=== PATIENT | male | born 1955 | race African-American/Black ===

== ENCOUNTER 2025-07-01 20:44 | Inpatient (IN) | payer MEDICARE, MEDICAID ==
[~2025-07-01] VITALS: Ht 162.6 cm; Wt 74.8 kg
[2025-07-01 20:48] VITALS: RESP 28
[2025-07-01] MEDS ORDERED: METHYLPREDNISOLONE 40MG/ML INJ IV ONE ×2 (21:00)
[2025-07-01] MEDS: AZITHROMYCIN 500MG/250ML 250 ML IV SCH (21:00)
[2025-07-01] MEDS ORDERED: CEFTRIAXONE 2,000 MG in DEXT 5% WATER 100 ML IV SCH (21:30)
[2025-07-01] MEDS: SODIUM CHLORIDE 0.9% 1,000 ML IV ONE (21:39)
[2025-07-01] MEDS: CEFTRIAXONE 2GM/50ML 50 ML IV SCH (21:40)
[2025-07-01] MEDS: METHYLPREDNISOLONE SOD SUCC 125MG/2ML (ACT-O-VIAL) IV NR (21:40)
[2025-07-01 21:56] LABS: BASOPHILS % 0.3 % (0.0-2.0); EOSINOPHILS % 0.2 % (0.0-5.0); HEMATOCRIT. 39.8 % (42.0-52.0); HEMOGLOBIN. 12.2 g/dL (14.0-18.0); LYMPHOCYTES % 8.7 % (20.0-50.0); MEAN PLATELET VOLUME 8.0 fl (7.4-10.4); MONOCYTES % 3.0 % (2.0-8.0); NEUTROPHILS % 87.8 % (40.0-76.0); PLATELET 354 x1000/uL (130-400); RED BLOOD CELL COUNT 4.88 mill/uL (4.7-6.1); RED CELL DISTRIBUTION WIDTH 15.9 % (11.6-14.6)
[2025-07-01 22:07] LABS: CREATININE 1.0 mg/dL (0.6-1.3)
[2025-07-01 22:08] LABS: TROPONIN I HIGH SENSITIVITY < 4 ng/L (3.0-53); UREA NITROGEN BLOOD 14 mg/dL (9-23)
[2025-07-01 22:09] LABS: ASPARTATE AMINOTRANSFERASE 27 IU/L (<34)
[2025-07-01 22:10] LABS: BILIRUBIN DIRECT < 0.1 mg/dL (<=3.0); BILIRUBIN TOTAL 0.4 mg/dL (0.1-1.0); INR 1.0; PROTEIN TOTAL 8.6 g/dL (6.0-8.3)
[2025-07-01 22:15] LABS: BG DEOXYHEMOGLOBIN 0.1 % (0.0-5.0)
[2025-07-02] VITALS (79 sets, daily range): BP systolic 70–153; BP diastolic 50–126; PULSE 64–113; RESP 21–32; TEMP 34.3–35.8; O2SAT 95–100
[2025-07-02] MEDS ORDERED: ONDANSETRON HCL 4MG/2ML INJ IV PRN
[2025-07-02] MEDS ORDERED: IPRATROPIUM/ALBUTEROL 0.5-3(2.5)MG/3ML NEB HHN PRN
[2025-07-02] MEDS ORDERED: ACETAMINOPHEN 325MG TABLET PO PRN ×2
[2025-07-02] MEDS: ALBUTEROL (0.083%) 2.5MG/3ML NEB HHN NR ×2 (02:31→07:45)
[2025-07-02] MEDS: ALBUTEROL (0.083%) 2.5MG/3ML NEB HHN ONE (02:31)
[2025-07-02 02:54] LABS: BG BASE EXCESS -3.3 mmol/L (-2.0-3.0); BG CARBOXYHEMOGLOBIN 0.8 % (0.5-1.5); BG DEOXYHEMOGLOBIN 7.5 % (0.0-5.0); BG FRACTION INSPIRED OXYGEN 40; BG HCO3 ACT 26.7 mmol/L (21.0-28.0); BG METHEMOGLOBIN 0.3 % (0.5-1.5); BG OXYGEN SATURATION 92.4 % (94.0-98.0); BG OXYHEMOGLOBIN 91.4 % (94.0-98.0); BG PCO2 74.6 mmHg (35.0-48.0); BG PH 7.172 (7.350-7.450); BG PO2 77.3 mmHg (83.0-108.0); BG SAMPLE SITE RIGHT RADIAL; BG TOTAL HEMOGLOBIN 12.7 g/dL (13.5-17.5); BG VENT MODE MASK - BIPAP; BG VENT RATE 18.0 set
[2025-07-02] MEDS: ONDANSETRON HCL 4MG/2ML INJ IV NR (04:00)
[2025-07-02] MEDS: PROPOFOL 10MG/ML 100ML 100 ML IV PRN (05:00)
[2025-07-02] MEDS ORDERED: FENTANYL 2500MCG/250ML PMX 250 ML IV PRN (05:15)
[2025-07-02] MEDS: NOREPINEPHRINE 8MG/250ML PMX 250 ML IV PRN (05:27)
[2025-07-02] MEDS: FENTANYL 2500MCG/250ML PMX 250 ML IV PRN (05:34)
[2025-07-02] MEDS: SODIUM CHLORIDE 0.9% 1,000 ML IV ONE (05:45)
[2025-07-02] MEDS ORDERED: METHYLPREDNISOLONE 40MG/ML INJ IV SCH (06:00)
[2025-07-02] MEDS ORDERED: ACETYLCYSTEINE 200MG/ML 20% VIAL 4ML INH SCH (06:00)
[2025-07-02] MEDS ORDERED: IPRATROPIUM/ALBUTEROL 0.5-3(2.5)MG/3ML NEB HHN SCH (06:00)
[2025-07-02] MEDS ORDERED: VANCOMYCIN 1.5GM/250ML IV NR (06:00)
[2025-07-02 06:25] LABS: HEMATOCRIT. 40.7 % (42.0-52.0); HEMOGLOBIN. 12.3 g/dL (14.0-18.0); MEAN PLATELET VOLUME 8.1 fl (7.4-10.4); PLATELET 364 x1000/uL (130-400); RED BLOOD CELL COUNT 4.89 mill/uL (4.7-6.1); RED CELL DISTRIBUTION WIDTH 16.5 % (11.6-14.6)
[2025-07-02 06:28] LABS: BG BASE EXCESS -5.7 mmol/L (-2.0-3.0); BG CARBOXYHEMOGLOBIN 0.6 % (0.5-1.5); BG DEOXYHEMOGLOBIN 0.3 % (0.0-5.0); BG FRACTION INSPIRED OXYGEN 100; BG HCO3 ACT 20.7 mmol/L (21.0-28.0); BG METHEMOGLOBIN 0.3 % (0.5-1.5); BG OXYGEN SATURATION 99.7 % (94.0-98.0); BG OXYHEMOGLOBIN 98.8 % (94.0-98.0); BG PCO2 43.9 mmHg (35.0-48.0); BG PEEP (cmH2O) 8.0 cmH2O; BG PH 7.291 (7.350-7.450); BG PO2 237.1 mmHg (83.0-108.0); BG SAMPLE SITE RIGHT RADIAL; BG TIDAL VOLUME(mL) 500.0 mL; BG TOTAL HEMOGLOBIN 13.0 g/dL (13.5-17.5); BG VENT MODE VENT - AC; BG VENT RATE 26.0 set
[2025-07-02 06:31] LABS: CREATININE 0.9 mg/dL (0.6-1.3); UREA NITROGEN BLOOD 10 mg/dL (9-23)
[2025-07-02 06:33] LABS: PHOSPHORUS 2.8 mg/dL (2.5-4.9)
[2025-07-02 06:57] LABS: BAND% 14.0 % (1.0-6.0); LYMPHOCYTES % MANUAL 4.0 % (20.0-50.0); MONOCYTES % MANUAL 2.0 % (2.0-8.0); NEUTROPHILS % MANUAL 80.0 % (45.0-75.0); PLATELET ESTIMATE NORMAL
[2025-07-02] MEDS: IOHEXOL-350 100 ML BOTTLE ONE (07:02)
[2025-07-02] MEDS: LEVETIRACETAM 500MG PREMIX 100ML IV SCH (07:43)
[2025-07-02] MEDS: PIPERACILLIN/TAZO 3.375G/50ML 50 ML IV SCH (07:44)
[2025-07-02] MEDS: DEXT 5%/0.9% NACL 1,000 ML IV SCH (07:44)
[2025-07-02] MEDS: GUAIFENESIN 200MG/10ML SUGAR FREE UDC PO SCH (07:44)
[2025-07-02] MEDS: IPRATROPIUM/ALBUTEROL 0.5-3(2.5)MG/3ML NEB HHN SCH (08:08)
[2025-07-02] MEDS: DEXTROSE 50% WATER 50ML SYRINGE IV NR (08:12)
[2025-07-02] MEDS: QUETIAPINE FUMARATE 25MG TABLET PO SCH (08:13)
[2025-07-02] MEDS: ASPIRIN 81MG TABLET PO SCH (08:13)
[2025-07-02] MEDS: FINASTERIDE 5MG TABLET PO SCH (08:13)
[2025-07-02] MEDS: PANTOPRAZOLE SODIUM 40 MG/VIAL IV SCH (08:13)
[2025-07-02] MEDS: VANCOMYCIN 1.5GM/250ML IV NR (08:14)
[2025-07-02] MEDS: TAMSULOSIN HCL 0.4MG SR CAPSULE PO SCH (08:14)
[2025-07-02] MEDS: INSULIN REGULAR (HUMULIN R) 1000UNITS/10ML VIAL IV NR (08:14)
[2025-07-02] MEDS ORDERED: AZITHROMYCIN 500MG/250ML 250 ML IV SCH (09:00)
[2025-07-02] MEDS ORDERED: LEVETIRACETAM 500MG TABLET PO SCH (09:00)
[2025-07-02] MEDS ORDERED: LEVETIRACETAM 500MG in NACL 100ML PREMIX IV SCH (09:00)
[2025-07-02] MEDS: POLYETHYLENE GLYCOL 3350 (17GM) 1 DOSE PACK PO SCH (09:00)
[2025-07-02] MEDS: CALCIUM GLUCONATE 100MG/ML 10ML VIAL IV NR (09:07)
[2025-07-02] MEDS: MAGNESIUM 2 G PREMIX 50 ML IV NR (09:08)
[2025-07-02] MEDS: ENOXAPARIN 40MG/0.4ML SYR SUBCUT SCH (09:08)
[2025-07-02] MEDS ORDERED: SODIUM CHLORIDE 0.9% 1,000 ML IV SCH (12:00)
[2025-07-02 12:55] LABS: BG BASE EXCESS -2.9 mmol/L (-2.0-3.0); BG CARBOXYHEMOGLOBIN 1.0 % (0.5-1.5); BG DEOXYHEMOGLOBIN 12.4 % (0.0-5.0); BG FRACTION INSPIRED OXYGEN 60; BG HCO3 ACT 22.7 mmol/L (21.0-28.0); BG METHEMOGLOBIN 0.0 % (0.5-1.5); BG OXYGEN SATURATION 87.5 % (94.0-98.0); BG OXYHEMOGLOBIN 86.6 % (94.0-98.0); BG PCO2 42.5 mmHg (35.0-48.0); BG PEEP (cmH2O) 8.0 cmH2O; BG PH 7.345 (7.350-7.450); BG PO2 54.0 mmHg (83.0-108.0); BG SAMPLE SITE RIGHT RADIAL; BG TIDAL VOLUME(mL) 500.0 mL; BG TOTAL HEMOGLOBIN 11.7 g/dL (13.5-17.5); BG VENT MODE VENT - AC; BG VENT RATE 22.0 set
[2025-07-02] MEDS: METHYLPREDNISOLONE SOD SUCC 40MG/ML (ACT-O-VIAL) IV SCH (14:10)
[2025-07-02 17:14] LABS: CLARITY URINE CLEAR (CLEAR); GLUCOSE URINE 2+ (NEGATIVE); KETONES URINE TRACE (NEGATIVE); LEUKOCYTE ESTERASE URINE TRACE (NEGATIVE); NITRITE URINE NEGATIVE (NEGATIVE); OCCULT BLOOD URINE NEGATIVE (NEGATIVE); PH URINE 5.5 (4.5-8.0); PROTEIN URINE TRACE (NEGATIVE); SPECIFIC GRAVITY URINE 1.046 (1.005-1.030); UROBILINOGEN URINE 0.2 E.U./dL (0.2-1.0)
[2025-07-02 17:31] LABS: COLOR URINE STRAW (YELLOW)
[2025-07-02 17:32] LABS: BACTERIA URINE NONE SEEN; MUCUS URINE TRACE /lpf (NONE/TRACE); RBC URINE NONE SEEN /hpf (0-2); SQUAMOUS EPITHELIAL CELL URINE RARE /lpf (RARE/1+); WBC URINE 0-2 /hpf (0-2)
[2025-07-02 17:38] LABS: RESPIRATORY SYNCYTIAL VIRUS Not Detected (Not Detectd)
[2025-07-02 17:53] LABS: INFLUENZA TYPE A Presumptive Negative (Pres. Neg.)
[2025-07-02 17:54] LABS: INFLUENZA TYPE B Presumptive Negative (Pres. Neg.)
[2025-07-02] MEDS: VANCOMYCIN 750MG/150ML (BAXTER) IV SCH (20:43)
[2025-07-02] MEDS: ATORVASTATIN CALCIUM 40MG TABLET PO SCH (20:43)
[2025-07-02] MEDS: AZITHROMYCIN 500MG/250ML 250 ML IV SCH (20:44)
[2025-07-03] VITALS (101 sets, daily range): BP systolic 81–154; BP diastolic 48–94; PULSE 67–113; RESP 19–27; TEMP 35.8–36.5; O2SAT 87–100
[2025-07-03] MEDS ORDERED: FENTANYL CITRATE 2,500 MCG in SODIUM CHLORIDE 0.9% 200 ML IV PRN (02:30)
[2025-07-03 05:54] LABS: UREA NITROGEN BLOOD 10 mg/dL (9-23)
[2025-07-03 05:57] LABS: PLATELET 245 x1000/uL (130-400); RED BLOOD CELL COUNT 3.69 mill/uL (4.7-6.1); RED CELL DISTRIBUTION WIDTH 16.2 % (11.6-14.6)
[2025-07-03 06:07] LABS: CREATININE 0.8 mg/dL (0.6-1.3)
[2025-07-03] MEDS ORDERED: PROPOFOL 10MG/ML 100ML 100 ML IV PRN (06:15)
[2025-07-03] MEDS ORDERED: LIDOCAINE HCL 1% 20ML VIAL ONE (09:16)
[2025-07-03 09:30] LABS: BG BASE EXCESS -1.4 mmol/L (-2.0-3.0); BG CARBOXYHEMOGLOBIN 0.1 % (0.5-1.5); BG DEOXYHEMOGLOBIN 2.0 % (0.0-5.0); BG FRACTION INSPIRED OXYGEN 60; BG HCO3 ACT 21.8 mmol/L (21.0-28.0); BG METHEMOGLOBIN 0.1 % (0.5-1.5); BG OXYGEN SATURATION 98.0 % (94.0-98.0); BG OXYHEMOGLOBIN 97.8 % (94.0-98.0); BG PCO2 31.1 mmHg (35.0-48.0); BG PEEP (cmH2O) 8.0 cmH2O; BG PH 7.464 (7.350-7.450); BG PO2 103.7 mmHg (83.0-108.0); BG SAMPLE SITE RIGHT RADIAL; BG TIDAL VOLUME(mL) 500.0 mL; BG TOTAL HEMOGLOBIN 9.9 g/dL (13.5-17.5); BG VENT MODE VENT - AC; BG VENT RATE 22.0 set
[2025-07-03] MEDS: BLOOD SUGAR DIAGNOSTIC STRIP TEST SCH (21:13)
[2025-07-04] VITALS (106 sets, daily range): BP systolic 94–145; BP diastolic 48–86; PULSE 81–140; RESP 20–36; TEMP 36.2–36.7; O2SAT 85–100
[2025-07-04] MEDS: METOPROLOL TARTRATE 25MG TABLET PO SCH ×2 (02:27→21:17)
[2025-07-04 06:04] LABS: HEMATOCRIT. 29.8 % (42.0-52.0); HEMOGLOBIN. 9.7 g/dL (14.0-18.0); RED BLOOD CELL COUNT 3.69 mill/uL (4.7-6.1); RED CELL DISTRIBUTION WIDTH 16.4 % (11.6-14.6)
[2025-07-04] MEDS ORDERED: PROPOFOL 10MG/ML 100ML 100 ML IV PRN (06:45)
[2025-07-04] MEDS: SODIUM CHLORIDE 0.9% 1,000 ML IV SCH (08:41)
[2025-07-04] MEDS ORDERED: METOPROLOL TARTRATE 25MG TABLET PO SCH ×2 (09:00→21:00)
[2025-07-04] MEDS: FINASTERIDE 5MG TABLET NG SCH (10:05)
[2025-07-04 10:38] LABS: BG BASE EXCESS -1.8 mmol/L (-2.0-3.0); BG CARBOXYHEMOGLOBIN 0.3 % (0.5-1.5); BG DEOXYHEMOGLOBIN 3.7 % (0.0-5.0); BG FRACTION INSPIRED OXYGEN 60; BG HCO3 ACT 22.4 mmol/L (21.0-28.0); BG METHEMOGLOBIN 0.1 % (0.5-1.5); BG OXYGEN SATURATION 96.3 % (94.0-98.0); BG OXYHEMOGLOBIN 95.9 % (94.0-98.0); BG PCO2 36.2 mmHg (35.0-48.0); BG PEEP (cmH2O) 8.0 cmH2O; BG PH 7.410 (7.350-7.450); BG PO2 83.1 mmHg (83.0-108.0); BG SAMPLE SITE LEFT RADIAL; BG TOTAL HEMOGLOBIN 10.1 g/dL (13.5-17.5); BG VENT MODE VENT - P/C; BG VENT RATE 20.0 set
[2025-07-04 11:49] LABS: CREATININE 0.8 mg/dL (0.6-1.3); TRIGLYCERIDE 62 mg/dL (0-150); UREA NITROGEN BLOOD 10 mg/dL (9-23)
[2025-07-04] MEDS: METOCLOPRAMIDE HCL 10MG/2ML VIAL IV SCH (11:58)
[2025-07-04 13:35] LABS: BAND% 18.0 % (1.0-6.0); LYMPHOCYTES % MANUAL 5.0 % (20.0-50.0); MONOCYTES % MANUAL 4.0 % (2.0-8.0); MYELOCYTES % 1.0 % (0-0); NEUTROPHILS % MANUAL 72.0 % (45.0-75.0); PLATELET ESTIMATE NORMAL
[2025-07-04 13:36] LABS: MEAN PLATELET VOLUME 9.2 fl (7.4-10.4); PLATELET 231 x1000/uL (130-400)
[2025-07-05] VITALS (105 sets, daily range): BP systolic 86–164; BP diastolic 46–95; PULSE 64–131; RESP 19–49; TEMP 36.3–36.9; O2SAT 92–100
[2025-07-05 06:11] LABS: CREATININE 0.8 mg/dL (0.6-1.3)
[2025-07-05 06:12] LABS: UREA NITROGEN BLOOD 10 mg/dL (9-23)
[2025-07-05 08:36] LABS: HEMATOCRIT. 29.6 % (42.0-52.0); HEMOGLOBIN. 9.5 g/dL (14.0-18.0); MEAN PLATELET VOLUME 8.5 fl (7.4-10.4); PLATELET 223 x1000/uL (130-400); RED BLOOD CELL COUNT 3.70 mill/uL (4.7-6.1); RED CELL DISTRIBUTION WIDTH 16.5 % (11.6-14.6)
[2025-07-05 09:19] LABS: BG BASE EXCESS -1.6 mmol/L (-2.0-3.0); BG CARBOXYHEMOGLOBIN 0.5 % (0.5-1.5); BG DEOXYHEMOGLOBIN 6.5 % (0.0-5.0); BG FRACTION INSPIRED OXYGEN 60; BG HCO3 ACT 24.4 mmol/L (21.0-28.0); BG METHEMOGLOBIN 0.2 % (0.5-1.5); BG OXYGEN SATURATION 93.5 % (94.0-98.0); BG OXYHEMOGLOBIN 92.8 % (94.0-98.0); BG PCO2 47.2 mmHg (35.0-48.0); BG PEEP (cmH2O) 8.0 cmH2O; BG PH 7.332 (7.350-7.450); BG PO2 70.1 mmHg (83.0-108.0); BG SAMPLE SITE LEFT RADIAL; BG TOTAL HEMOGLOBIN 10.6 g/dL (13.5-17.5); BG VENT MODE VENT - P/C; BG VENT RATE 20.0 set
[2025-07-05] MEDS: CALCIUM GLUCONATE 100MG/ML 10ML VIAL IV SCH (09:39)
[2025-07-05] MEDS: DEXTROSE 50% WATER 50ML SYRINGE IV SCH (09:39)
[2025-07-05] MEDS: INSULIN REGULAR (HUMULIN R) 1000UNITS/10ML VIAL IV SCH (09:41)
[2025-07-05] MEDS: FUROSEMIDE 40MG/4ML VIAL IVP SCH ×2 (09:56→11:30)
[2025-07-05 10:05] LABS: CREATININE 0.8 mg/dL (0.6-1.3); UREA NITROGEN BLOOD 13 mg/dL (9-23)
[2025-07-05 10:55] LABS: BAND% 5.0 % (1.0-6.0); LYMPHOCYTES % MANUAL 6.0 % (20.0-50.0); MONOCYTES % MANUAL 5.0 % (2.0-8.0); NEUTROPHILS % MANUAL 84.0 % (45.0-75.0); PLATELET ESTIMATE NORMAL
[2025-07-05] MEDS: ALBUTEROL (0.5%) 2.5MG/0.5ML NEB HHN SCH (12:17)
[2025-07-05] MEDS: NOREPINEPHRINE 8MG/250ML PMX 250 ML IV PRN (12:23)
[2025-07-05] MEDS: METHYLPREDNISOLONE SOD SUCC 125MG/2ML (ACT-O-VIAL) IV SCH (14:41)
[2025-07-05] MEDS: DOCUSATE SODIUM 100MG CAPSULE PO PRN (18:45)
[2025-07-06] VITALS (101 sets, daily range): BP systolic 93–163; BP diastolic 53–95; PULSE 87–141; RESP 18–33; TEMP 36.6–36.8; O2SAT 60–100
[2025-07-06 05:56] LABS: PLATELET 229 x1000/uL (130-400); RED BLOOD CELL COUNT 3.48 mill/uL (4.7-6.1); RED CELL DISTRIBUTION WIDTH 16.4 % (11.6-14.6)
[2025-07-06 06:11] LABS: CREATININE 0.9 mg/dL (0.6-1.3); UREA NITROGEN BLOOD 18 mg/dL (9-23)
[2025-07-06 10:05] LABS: BG BASE EXCESS 6.2 mmol/L (-2.0-3.0); BG CARBOXYHEMOGLOBIN 0.3 % (0.5-1.5); BG DEOXYHEMOGLOBIN 2.0 % (0.0-5.0); BG FRACTION INSPIRED OXYGEN 60; BG HCO3 ACT 31.0 mmol/L (21.0-28.0); BG METHEMOGLOBIN 0.2 % (0.5-1.5); BG OXYGEN SATURATION 98.0 % (94.0-98.0); BG OXYHEMOGLOBIN 97.5 % (94.0-98.0); BG PCO2 46.4 mmHg (35.0-48.0); BG PEEP (cmH2O) 8.0 cmH2O; BG PH 7.443 (7.350-7.450); BG PO2 103.3 mmHg (83.0-108.0); BG SAMPLE SITE LEFT RADIAL; BG TOTAL HEMOGLOBIN 10.0 g/dL (13.5-17.5); BG VENT MODE VENT - P/C; BG VENT RATE 22.0 set
[2025-07-06] MEDS: METHYLPREDNISOLONE SOD SUCC 40MG/ML (ACT-O-VIAL) IV SCH (21:34)
[2025-07-06] MEDS ORDERED: QUET25TA36 MT (22:25)
[2025-07-06] MEDS ORDERED: METO-396 PO (22:30)
[2025-07-06] MEDS ORDERED: ASPI-1406 MT (22:30)
[2025-07-06] MEDS ORDERED: KEPP500 MT (22:30)
[2025-07-06] MEDS ORDERED: ATOR40TA70 MT (22:30)
[2025-07-06] MEDS ORDERED: POLY17PO43 MT (22:30)
[2025-07-06] MEDS ORDERED: TAMS-54 PO (22:30)
[2025-07-06] MEDS ORDERED: SENN-362 PO (22:30)
[2025-07-06] MEDS ORDERED: FINA5TAB11 PO (22:30)
[2025-07-06] MEDS ORDERED: FEXO-403 PO (22:30)
[2025-07-06] MEDS ORDERED: FAMO20TA8 PO (22:30)
[2025-07-07] VITALS (105 sets, daily range): BP systolic 83–168; BP diastolic 50–95; PULSE 80–129; RESP 15–39; TEMP 36.5–36.9; O2SAT 91–100
[2025-07-07 05:36] LABS: PLATELET 252 x1000/uL (130-400); RED BLOOD CELL COUNT 3.90 mill/uL (4.7-6.1); RED CELL DISTRIBUTION WIDTH 16.6 % (11.6-14.6)
[2025-07-07 06:51] LABS: CREATININE 0.9 mg/dL (0.6-1.3); UREA NITROGEN BLOOD 24 mg/dL (9-23)
[2025-07-07 10:11] LABS: BG BASE EXCESS 10.8 mmol/L (-2.0-3.0); BG CARBOXYHEMOGLOBIN 0.3 % (0.5-1.5); BG DEOXYHEMOGLOBIN 2.9 % (0.0-5.0); BG FRACTION INSPIRED OXYGEN 60; BG HCO3 ACT 35.9 mmol/L (21.0-28.0); BG METHEMOGLOBIN 0.1 % (0.5-1.5); BG OXYGEN SATURATION 97.1 % (94.0-98.0); BG OXYHEMOGLOBIN 96.7 % (94.0-98.0); BG PCO2 50.8 mmHg (35.0-48.0); BG PEEP (cmH2O) 5.0 cmH2O; BG PH 7.467 (7.350-7.450); BG PO2 93.2 mmHg (83.0-108.0); BG SAMPLE SITE LEFT RADIAL; BG TOTAL HEMOGLOBIN 10.4 g/dL (13.5-17.5); BG VENT MODE VENT - AC/PC; BG VENT RATE 18.0 set
[2025-07-07] MEDS: PIPERACILLIN/TAZO 3.375G/50ML 50 ML IV SCH (13:31)
[2025-07-08] VITALS (107 sets, daily range): BP systolic 74–167; BP diastolic 43–97; PULSE 75–122; RESP 11–33; TEMP 36.1–37; O2SAT 89–100
[2025-07-08] MEDS ORDERED: FENTANYL 2500MCG/250ML PMX 250 ML IV PRN
[2025-07-08] MEDS: FENTANYL CITRATE 2,500 MCG in SODIUM CHLORIDE 0.9% 200 ML IV PRN (05:24)
[2025-07-08 05:29] LABS: CREATININE 0.8 mg/dL (0.6-1.3); UREA NITROGEN BLOOD 23 mg/dL (9-23)
[2025-07-08 06:08] LABS: PLATELET 243 x1000/uL (130-400); RED BLOOD CELL COUNT 4.04 mill/uL (4.7-6.1); RED CELL DISTRIBUTION WIDTH 16.8 % (11.6-14.6)
[2025-07-08 08:15] LABS: BG BASE EXCESS 8.9 mmol/L (-2.0-3.0); BG CARBOXYHEMOGLOBIN 0.9 % (0.5-1.5); BG DEOXYHEMOGLOBIN 5.2 % (0.0-5.0); BG FRACTION INSPIRED OXYGEN 50; BG HCO3 ACT 33.7 mmol/L (21.0-28.0); BG METHEMOGLOBIN 0.1 % (0.5-1.5); BG OXYGEN SATURATION 94.7 % (94.0-98.0); BG OXYHEMOGLOBIN 93.8 % (94.0-98.0); BG PCO2 47.8 mmHg (35.0-48.0); BG PEEP (cmH2O) 5.0 cmH2O; BG PH 7.466 (7.350-7.450); BG PO2 73.5 mmHg (83.0-108.0); BG SAMPLE SITE LEFT RADIAL; BG TOTAL HEMOGLOBIN 10.0 g/dL (13.5-17.5); BG VENT MODE VENT - AC/PC; BG VENT RATE 20.0 set
[2025-07-08] MEDS: POLYETHYLENE GLYCOL 3350 (17GM) 1 DOSE PACK PO SCH (08:45)
[2025-07-08] MEDS: FUROSEMIDE 40MG/4ML VIAL IVP SCH (08:45)
[2025-07-09] VITALS (84 sets, daily range): BP systolic 95–182; BP diastolic 47–98; PULSE 85–126; RESP 15–34; TEMP 36.7–37.1; O2SAT 91–99
[2025-07-09 06:12] LABS: HEMATOCRIT. 31.5 % (42.0-52.0); HEMOGLOBIN. 10.0 g/dL (14.0-18.0); MEAN PLATELET VOLUME 8.0 fl (7.4-10.4); PLATELET 310 x1000/uL (130-400); RED BLOOD CELL COUNT 3.95 mill/uL (4.7-6.1); RED CELL DISTRIBUTION WIDTH 16.7 % (11.6-14.6)
[2025-07-09 06:22] LABS: CREATININE 0.8 mg/dL (0.6-1.3); UREA NITROGEN BLOOD 30 mg/dL (9-23)
[2025-07-09] MEDS: HYDRALAZINE 20MG/ML VIAL IV PRN (06:22)
[2025-07-09] MEDS: SODIUM POLYSTYRENE SULFONATE 15 G/60 ML BOT PO NR (08:10)
[2025-07-09 08:14] LABS: BG BASE EXCESS 5.7 mmol/L (-2.0-3.0); BG CARBOXYHEMOGLOBIN 0.9 % (0.5-1.5); BG DEOXYHEMOGLOBIN 4.7 % (0.0-5.0); BG FRACTION INSPIRED OXYGEN 50; BG HCO3 ACT 29.5 mmol/L (21.0-28.0); BG METHEMOGLOBIN 0.2 % (0.5-1.5); BG OXYGEN SATURATION 95.2 % (94.0-98.0); BG OXYHEMOGLOBIN 94.2 % (94.0-98.0); BG PCO2 40.1 mmHg (35.0-48.0); BG PEEP (cmH2O) 5.0 cmH2O; BG PH 7.485 (7.350-7.450); BG PIP 22.0 cmH2O; BG PO2 73.3 mmHg (83.0-108.0); BG SAMPLE SITE LEFT RADIAL; BG TOTAL HEMOGLOBIN 10.6 g/dL (13.5-17.5); BG VENT MODE VENT - P/C; BG VENT RATE 20.0 set
[2025-07-09] MEDS: SENNOSIDES/DOCUSATE SOD 8.6/50MG TABLET PO SCH (21:38)
[2025-07-10] VITALS (79 sets, daily range): BP systolic 102–187; BP diastolic 51–91; PULSE 65–116; RESP 15–34; TEMP 36.7–36.9; O2SAT 87–98
[2025-07-10 06:28] LABS: PLATELET 373 x1000/uL (130-400); RED BLOOD CELL COUNT 3.91 mill/uL (4.7-6.1); RED CELL DISTRIBUTION WIDTH 16.6 % (11.6-14.6)
[2025-07-10 06:46] LABS: CREATININE 0.7 mg/dL (0.6-1.3)
[2025-07-10 06:47] LABS: UREA NITROGEN BLOOD 22 mg/dL (9-23)
[2025-07-10 09:39] LABS: BG BASE EXCESS 7.6 mmol/L (-2.0-3.0); BG CARBOXYHEMOGLOBIN 0.7 % (0.5-1.5); BG DEOXYHEMOGLOBIN 5.0 % (0.0-5.0); BG FRACTION INSPIRED OXYGEN 55; BG HCO3 ACT 32.1 mmol/L (21.0-28.0); BG METHEMOGLOBIN 0.2 % (0.5-1.5); BG OXYGEN SATURATION 95.0 % (94.0-98.0); BG OXYHEMOGLOBIN 94.1 % (94.0-98.0); BG PCO2 45.0 mmHg (35.0-48.0); BG PEEP (cmH2O) 5.0 cmH2O; BG PH 7.471 (7.350-7.450); BG PO2 72.4 mmHg (83.0-108.0); BG SAMPLE SITE LEFT RADIAL; BG TOTAL HEMOGLOBIN 10.6 g/dL (13.5-17.5); BG VENT MODE VENT - P/C; BG VENT RATE 20.0 set
[2025-07-10 19:10] LABS: BAND% 2.0 % (1.0-6.0); LYMPHOCYTES % MANUAL 7.0 % (20.0-50.0); MONOCYTES % MANUAL 2.0 % (2.0-8.0); MYELOCYTES % 2.0 % (0-0); NEUTROPHILS % MANUAL 87.0 % (45.0-75.0)
[2025-07-10 19:11] LABS: PLATELET ESTIMATE NORMAL
[2025-07-11] VITALS (100 sets, daily range): BP systolic 77–170; BP diastolic 47–83; PULSE 68–124; RESP 11–51; TEMP 36.7–37.3; O2SAT 88–100
[2025-07-11] MEDS: GUAIFENESIN 200MG/10ML SUGAR FREE UDC PO SCH (00:10)
[2025-07-11] MEDS: IPRATROPIUM/ALBUTEROL 0.5-3(2.5)MG/3ML NEB HHN SCH (00:15)
[2025-07-11] MEDS: ACETYLCYSTEINE 200MG/ML 20% VIAL 4ML INH SCH (00:16)
[2025-07-11 05:01] LABS: PLATELET 443 x1000/uL (130-400); RED BLOOD CELL COUNT 3.97 mill/uL (4.7-6.1); RED CELL DISTRIBUTION WIDTH 16.3 % (11.6-14.6)
[2025-07-11 05:20] LABS: CREATININE 0.7 mg/dL (0.6-1.3); UREA NITROGEN BLOOD 18 mg/dL (9-23)
[2025-07-11 10:31] LABS: BG BASE EXCESS 5.4 mmol/L (-2.0-3.0); BG CARBOXYHEMOGLOBIN 0.7 % (0.5-1.5); BG DEOXYHEMOGLOBIN 3.4 % (0.0-5.0); BG FRACTION INSPIRED OXYGEN 60; BG HCO3 ACT 29.9 mmol/L (21.0-28.0); BG METHEMOGLOBIN 0.2 % (0.5-1.5); BG OXYGEN SATURATION 96.6 % (94.0-98.0); BG OXYHEMOGLOBIN 95.7 % (94.0-98.0); BG PCO2 43.4 mmHg (35.0-48.0); BG PEEP (cmH2O) 8.0 cmH2O; BG PH 7.456 (7.350-7.450); BG PO2 90.2 mmHg (83.0-108.0); BG SAMPLE SITE LEFT RADIAL; BG TOTAL HEMOGLOBIN 11.3 g/dL (13.5-17.5); BG VENT MODE VENT - AC/PC; BG VENT RATE 18.0 set
[2025-07-11] MEDS: SODIUM CHLORIDE 0.9% 500 ML IV ONE (12:38)
[2025-07-11 18:29] LABS: INR 1.0
[2025-07-12] VITALS (77 sets, daily range): BP systolic 87–146; BP diastolic 54–77; PULSE 70–133; RESP 15–30; TEMP 36.7–37; O2SAT 88–100
[2025-07-12] MEDS: MEROPENEM 1G/100ML 100 ML IV SCH (02:00)
[2025-07-12 09:18] LABS: BG BASE EXCESS 6.5 mmol/L (-2.0-3.0); BG CARBOXYHEMOGLOBIN 0.0 % (0.5-1.5); BG DEOXYHEMOGLOBIN 1.9 % (0.0-5.0); BG FRACTION INSPIRED OXYGEN 70; BG HCO3 ACT 31.2 mmol/L (21.0-28.0); BG METHEMOGLOBIN 0.3 % (0.5-1.5); BG OXYGEN SATURATION 98.1 % (94.0-98.0); BG OXYHEMOGLOBIN 97.8 % (94.0-98.0); BG PCO2 45.5 mmHg (35.0-48.0); BG PEEP (cmH2O) 8.0 cmH2O; BG PH 7.454 (7.350-7.450); BG PIP 22.0 cmH2O; BG PO2 105.0 mmHg (83.0-108.0); BG SAMPLE SITE LEFT FEMORAL; BG TOTAL HEMOGLOBIN 10.0 g/dL (13.5-17.5); BG TOTAL RESPIRATORY RATE 19 b/min; BG VENT MODE VENT - P/C; BG VENT RATE 15.0 set
[2025-07-12 10:54] LABS: CREATININE 0.7 mg/dL (0.6-1.3); UREA NITROGEN BLOOD 14 mg/dL (9-23)
[2025-07-12 19:07] LABS: BG BASE EXCESS 6.3 mmol/L (-2.0-3.0); BG CARBOXYHEMOGLOBIN 0.7 % (0.5-1.5); BG DEOXYHEMOGLOBIN 12.1 % (0.0-5.0); BG FRACTION INSPIRED OXYGEN 60; BG HCO3 ACT 31.0 mmol/L (21.0-28.0); BG METHEMOGLOBIN 0.3 % (0.5-1.5); BG OXYGEN SATURATION 87.8 % (94.0-98.0); BG OXYHEMOGLOBIN 86.9 % (94.0-98.0); BG PCO2 45.8 mmHg (35.0-48.0); BG PEEP (cmH2O) 8.0 cmH2O; BG PH 7.449 (7.350-7.450); BG PIP 22.0 cmH2O; BG PO2 53.0 mmHg (83.0-108.0); BG SAMPLE SITE LEFT RADIAL; BG TOTAL HEMOGLOBIN 10.0 g/dL (13.5-17.5); BG TOTAL RESPIRATORY RATE 21 b/min; BG VENT MODE VENT - P/C; BG VENT RATE 15.0 set
[2025-07-13] VITALS (99 sets, daily range): BP systolic 87–181; BP diastolic 53–114; PULSE 74–162; RESP 16–34; TEMP 36.7–36.9; O2SAT 85–100
[2025-07-13 04:47] LABS: HEMATOCRIT. 26.2 % (42.0-52.0); HEMOGLOBIN. 8.5 g/dL (14.0-18.0); MEAN PLATELET VOLUME 7.6 fl (7.4-10.4); PLATELET 517 x1000/uL (130-400); RED BLOOD CELL COUNT 3.31 mill/uL (4.7-6.1); RED CELL DISTRIBUTION WIDTH 16.5 % (11.6-14.6)
[2025-07-13 04:57] LABS: CREATININE 0.6 mg/dL (0.6-1.3); UREA NITROGEN BLOOD 18 mg/dL (9-23)
[2025-07-13 04:59] LABS: PHOSPHORUS 2.5 mg/dL (2.5-4.9)
[2025-07-13 10:10] LABS: BG BASE EXCESS 6.0 mmol/L (-2.0-3.0); BG CARBOXYHEMOGLOBIN 0.5 % (0.5-1.5); BG DEOXYHEMOGLOBIN 5.7 % (0.0-5.0); BG FRACTION INSPIRED OXYGEN 70; BG HCO3 ACT 31.0 mmol/L (21.0-28.0); BG METHEMOGLOBIN 0.3 % (0.5-1.5); BG OXYGEN SATURATION 94.3 % (94.0-98.0); BG OXYHEMOGLOBIN 93.5 % (94.0-98.0); BG PCO2 47.8 mmHg (35.0-48.0); BG PEEP (cmH2O) 8.0 cmH2O; BG PH 7.430 (7.350-7.450); BG PIP 22.0 cmH2O; BG PO2 72.9 mmHg (83.0-108.0); BG SAMPLE SITE LEFT RADIAL; BG TOTAL HEMOGLOBIN 9.0 g/dL (13.5-17.5); BG VENT MODE VENT - P/C; BG VENT RATE 15.0 set
[2025-07-13] MEDS ORDERED: IOHEXOL-350 100 ML BOTTLE ONE (17:44)
[2025-07-13] MEDS ORDERED: FENTANYL CITRATE/PF 2,500 MCG in SODIUM CHLORIDE 0.9% 200 ML IV PRN (17:45)
[2025-07-13] MEDS: LORAZEPAM 2MG/ML UD SYRINGE IV SCH (20:53)
[2025-07-13 21:06] LABS: LYMPHOCYTES % MANUAL 4.0 % (20.0-50.0); MONOCYTES % MANUAL 2.0 % (2.0-8.0); NEUTROPHILS % MANUAL 94.0 % (45.0-75.0); PLATELET ESTIMATE INCREASED
[2025-07-13] MEDS ORDERED: DEXTROSE 50% WATER 50ML SYRINGE IV PRN (21:45)
[2025-07-13] MEDS: FENTANYL 2500MCG/250ML PMX 250 ML IV PRN (22:16)
[2025-07-14] VITALS (95 sets, daily range): BP systolic 87–172; BP diastolic 57–103; PULSE 91–142; RESP 16–35; TEMP 36.7–37.8; O2SAT 91–100
[2025-07-14 06:25] LABS: HEMATOCRIT. 25.9 % (42.0-52.0); HEMOGLOBIN. 8.3 g/dL (14.0-18.0); MEAN PLATELET VOLUME 7.5 fl (7.4-10.4); PLATELET 587 x1000/uL (130-400); RED BLOOD CELL COUNT 3.25 mill/uL (4.7-6.1); RED CELL DISTRIBUTION WIDTH 16.4 % (11.6-14.6)
[2025-07-14] MEDS: INSULIN LISPRO 100 UNITS/ML SUBCUT SCH (06:25)
[2025-07-14] MEDS ORDERED: BLOOD SUGAR DIAGNOSTIC STRIP TEST SCH (06:30)
[2025-07-14 06:37] LABS: CREATININE 0.7 mg/dL (0.6-1.3)
[2025-07-14 06:38] LABS: UREA NITROGEN BLOOD 20 mg/dL (9-23)
[2025-07-14 06:40] LABS: PHOSPHORUS 3.1 mg/dL (2.5-4.9)
[2025-07-14] MEDS ORDERED: INSULIN LISPRO 100 UNITS/ML SUBCUT SCH (07:00)
[2025-07-14 08:35] LABS: BG BASE EXCESS 7.9 mmol/L (-2.0-3.0); BG CARBOXYHEMOGLOBIN 0.3 % (0.5-1.5); BG DEOXYHEMOGLOBIN 8.4 % (0.0-5.0); BG FRACTION INSPIRED OXYGEN 70; BG HCO3 ACT 34.7 mmol/L (21.0-28.0); BG METHEMOGLOBIN 0.1 % (0.5-1.5); BG OXYGEN SATURATION 91.6 % (94.0-98.0); BG OXYHEMOGLOBIN 91.2 % (94.0-98.0); BG PCO2 62.3 mmHg (35.0-48.0); BG PEEP (cmH2O) 8.0 cmH2O; BG PH 7.364 (7.350-7.450); BG PIP 22.0 cmH2O; BG PO2 66.2 mmHg (83.0-108.0); BG SAMPLE SITE LEFT RADIAL; BG TOTAL HEMOGLOBIN 9.9 g/dL (13.5-17.5); BG VENT MODE VENT - P/C; BG VENT RATE 15.0 set
[2025-07-14] MEDS: DEXTROSE 50% WATER 50ML SYRINGE IV SCH (10:47)
[2025-07-14] MEDS: INSULIN REGULAR (HUMULIN R) 1000UNITS/10ML VIAL IV SCH (10:47)
[2025-07-14] MEDS: CALCIUM GLUCONATE 100MG/ML 10ML VIAL IV SCH (10:48)
[2025-07-14 15:27] LABS: LYMPHOCYTES % MANUAL 2.0 % (20.0-50.0); MONOCYTES % MANUAL 5.0 % (2.0-8.0); NEUTROPHILS % MANUAL 93.0 % (45.0-75.0)
[2025-07-14 15:28] LABS: PLATELET ESTIMATE SLIGHTLY INCREASED
[2025-07-14] MEDS: VANCOMYCIN 750MG/150ML (BAXTER) IV SCH (18:33)
[2025-07-14] MEDS: VANCOMYCIN 500MG/100ML IV SCH (23:04)
[2025-07-14] MEDS: METHYLPREDNISOLONE SOD SUCC 40MG/ML (ACT-O-VIAL) IV SCH (23:04)
[2025-07-15] VITALS (96 sets, daily range): BP systolic 74–179; BP diastolic 46–123; PULSE 72–134; RESP 14–31; TEMP 36.9–37; O2SAT 89–100
[2025-07-15] MEDS: LABETALOL 5MG/ML 4ML INJ IV PRN (03:17)
[2025-07-15 04:18] LABS: HEMATOCRIT. 27.6 % (42.0-52.0); HEMOGLOBIN. 8.9 g/dL (14.0-18.0); MEAN PLATELET VOLUME 6.9 fl (7.4-10.4); PLATELET 583 x1000/uL (130-400); RED BLOOD CELL COUNT 3.52 mill/uL (4.7-6.1); RED CELL DISTRIBUTION WIDTH 16.9 % (11.6-14.6)
[2025-07-15 04:36] LABS: CREATININE 0.6 mg/dL (0.6-1.3)
[2025-07-15 04:37] LABS: UREA NITROGEN BLOOD 17 mg/dL (9-23)
[2025-07-15 04:39] LABS: PHOSPHORUS 2.6 mg/dL (2.5-4.9)
[2025-07-15 05:28] LABS: LYMPHOCYTES % MANUAL 2.0 % (20.0-50.0); MONOCYTES % MANUAL 2.0 % (2.0-8.0); NEUTROPHILS % MANUAL 96.0 % (45.0-75.0)
[2025-07-15 05:29] LABS: PLATELET ESTIMATE INCREASED
[2025-07-15] MEDS ORDERED: VANCOMYCIN 750MG/150ML (BAXTER) IV SCH (09:00)
[2025-07-15] MEDS: METOPROLOL TARTRATE 25MG TABLET NG SCH (09:06)
[2025-07-15] MEDS ORDERED: INSULIN REGULAR (HUMULIN R) 1000UNITS/10ML VIAL IV NR (09:30)
[2025-07-15 09:38] LABS: BG BASE EXCESS 12.1 mmol/L (-2.0-3.0); BG CARBOXYHEMOGLOBIN 1.0 % (0.5-1.5); BG DEOXYHEMOGLOBIN 6.5 % (0.0-5.0); BG FRACTION INSPIRED OXYGEN 70; BG HCO3 ACT 38.7 mmol/L (21.0-28.0); BG METHEMOGLOBIN 0.2 % (0.5-1.5); BG OXYGEN SATURATION 93.4 % (94.0-98.0); BG OXYHEMOGLOBIN 92.3 % (94.0-98.0); BG PCO2 61.7 mmHg (35.0-48.0); BG PEEP (cmH2O) 5.0 cmH2O; BG PH 7.415 (7.350-7.450); BG PO2 66.0 mmHg (83.0-108.0); BG SAMPLE SITE LEFT RADIAL; BG TOTAL HEMOGLOBIN 10.9 g/dL (13.5-17.5); BG VENT MODE VENT - AC/PC; BG VENT RATE 20.0 set
[2025-07-15] MEDS: DEXTROSE 50% WATER 50ML SYRINGE IV NR (13:59)
[2025-07-15] MEDS: SODIUM CHLORIDE 1000MG TABLET NG SCH (14:00)
[2025-07-15] MEDS: INSULIN REGULAR (HUMULIN R) 1000UNITS/10ML VIAL IV SCH (14:01)
[2025-07-15] MEDS ORDERED: CEFEPIME 1GM IN DEXT 5% 50ML IV SCH (18:15)
[2025-07-15] MEDS: CEFEPIME 1GM/50ML 50 ML IV SCH (20:29)
[2025-07-15] MEDS: VANCOMYCIN 1.5GM PMX (XELLIA) 300 ML IV NR (20:55)
[2025-07-15] MEDS: QUETIAPINE FUMARATE 25MG TABLET PO SCH (21:24)
[2025-07-15] MEDS: DEXMEDETOMIDINE 100 ML IV PRN (22:42)
[2025-07-16] VITALS (98 sets, daily range): BP systolic 75–158; BP diastolic 49–111; PULSE 60–92; RESP 14–36; TEMP 36.6–37; O2SAT 92–100
[2025-07-16 06:29] LABS: CREATININE 0.6 mg/dL (0.6-1.3); UREA NITROGEN BLOOD 22 mg/dL (9-23)
[2025-07-16 06:31] LABS: PHOSPHORUS 3.9 mg/dL (2.5-4.9)
[2025-07-16] MEDS: VANCOMYCIN 750MG PREMIX 150 ML IV SCH (07:53)
[2025-07-16] MEDS: INSULIN REGULAR (HUMULIN R) 1000UNITS/10ML VIAL IV NR (09:10)
[2025-07-16] MEDS: SODIUM POLYSTYRENE SULFONATE 15 G/60 ML BOT NG NR (09:11)
[2025-07-16] MEDS: SODIUM BICARBONATE 8.4% 50MEQ/50ML SYR IV NR (09:11)
[2025-07-16] MEDS: DEXTROSE 50% WATER 50ML SYRINGE IV NR (09:13)
[2025-07-16 10:11] LABS: BG BASE EXCESS 8.7 mmol/L (-2.0-3.0); BG CARBOXYHEMOGLOBIN 1.6 % (0.5-1.5); BG DEOXYHEMOGLOBIN 4.1 % (0.0-5.0); BG FRACTION INSPIRED OXYGEN 80; BG HCO3 ACT 36.5 mmol/L (21.0-28.0); BG METHEMOGLOBIN 0.3 % (0.5-1.5); BG OXYGEN SATURATION 95.8 % (94.0-98.0); BG OXYHEMOGLOBIN 94.0 % (94.0-98.0); BG PCO2 76.5 mmHg (35.0-48.0); BG PEEP (cmH2O) 5.0 cmH2O; BG PH 7.296 (7.350-7.450); BG PO2 85.0 mmHg (83.0-108.0); BG SAMPLE SITE LEFT RADIAL; BG TOTAL HEMOGLOBIN 7.4 g/dL (13.5-17.5); BG VENT MODE VENT - P/C; BG VENT RATE 24.0 set
[2025-07-16] MEDS ORDERED: LIDOCAINE HCL 1% 20ML VIAL ONE (10:12)
[2025-07-16] MEDS: CALCIUM GLUCONATE 100MG/ML 10ML VIAL IV NR (12:01)
[2025-07-16 13:08] LABS: BG BASE EXCESS 9.2 mmol/L (-2.0-3.0); BG CARBOXYHEMOGLOBIN 1.7 % (0.5-1.5); BG DEOXYHEMOGLOBIN 0.6 % (0.0-5.0); BG FRACTION INSPIRED OXYGEN 100; BG HCO3 ACT 38.3 mmol/L (21.0-28.0); BG METHEMOGLOBIN 0.0 % (0.5-1.5); BG OXYGEN SATURATION 99.4 % (94.0-98.0); BG OXYHEMOGLOBIN 97.7 % (94.0-98.0); BG PCO2 90.0 mmHg (35.0-48.0); BG PEEP (cmH2O) 8.0 cmH2O; BG PH 7.247 (7.350-7.450); BG PO2 151.2 mmHg (83.0-108.0); BG SAMPLE SITE LEFT RADIAL; BG TOTAL HEMOGLOBIN 8.6 g/dL (13.5-17.5); BG VENT MODE VENT - AC/PC; BG VENT RATE 26.0 set
[2025-07-16 17:23] LABS: BASOPHILS % 0.1 % (0.0-2.0); EOSINOPHILS % 0.8 % (0.0-5.0); HEMATOCRIT. 26.6 % (42.0-52.0); HEMOGLOBIN. 8.3 g/dL (14.0-18.0); LYMPHOCYTES % 8.9 % (20.0-50.0); MEAN PLATELET VOLUME 7.0 fl (7.4-10.4); MONOCYTES % 8.0 % (2.0-8.0); NEUTROPHILS % 82.2 % (40.0-76.0); PLATELET 406 x1000/uL (130-400); RED BLOOD CELL COUNT 3.33 mill/uL (4.7-6.1); RED CELL DISTRIBUTION WIDTH 16.4 % (11.6-14.6)
[2025-07-16] MEDS: MIDAZOLAM 100MG/100ML PMX 100 ML IV PRN (21:42)
[2025-07-16 23:12] LABS: BG BASE EXCESS 11.9 mmol/L (-2.0-3.0); BG CARBOXYHEMOGLOBIN 0.5 % (0.5-1.5); BG DEOXYHEMOGLOBIN 3.8 % (0.0-5.0); BG FRACTION INSPIRED OXYGEN 100; BG HCO3 ACT 42.1 mmol/L (21.0-28.0); BG METHEMOGLOBIN 0.3 % (0.5-1.5); BG OXYGEN SATURATION 96.2 % (94.0-98.0); BG OXYHEMOGLOBIN 95.4 % (94.0-98.0); BG PCO2 97.8 mmHg (35.0-48.0); BG PEEP (cmH2O) 12.0 cmH2O; BG PH 7.252 (7.350-7.450); BG PO2 91.8 mmHg (83.0-108.0); BG SAMPLE SITE LEFT RADIAL; BG TIDAL VOLUME(mL) 300.0 mL; BG TOTAL HEMOGLOBIN 10.5 g/dL (13.5-17.5); BG VENT RATE 26.0 set
[2025-07-17] VITALS (106 sets, daily range): BP systolic 77–155; BP diastolic 34–136; PULSE 72–128; RESP 15–35; TEMP 36.7–37.1; O2SAT 89–100
[2025-07-17 06:23] LABS: HEMATOCRIT. 25.9 % (42.0-52.0); HEMOGLOBIN. 8.2 g/dL (14.0-18.0); MEAN PLATELET VOLUME 7.3 fl (7.4-10.4); PLATELET 370 x1000/uL (130-400); RED BLOOD CELL COUNT 3.21 mill/uL (4.7-6.1); RED CELL DISTRIBUTION WIDTH 16.2 % (11.6-14.6)
[2025-07-17 06:38] LABS: UREA NITROGEN BLOOD 21 mg/dL (9-23)
[2025-07-17 06:40] LABS: PHOSPHORUS 3.1 mg/dL (2.5-4.9)
[2025-07-17 06:57] LABS: CREATININE 0.4 mg/dL (0.6-1.3)
[2025-07-17] MEDS: SODIUM BICARBONATE 8.4% 50MEQ/50ML SYR IV NR (07:30)
[2025-07-17] MEDS: ALBUTEROL (0.083%) 2.5MG/3ML NEB HHN NR (08:24)
[2025-07-17 09:37] LABS: BG BASE EXCESS 12.3 mmol/L (-2.0-3.0); BG CARBOXYHEMOGLOBIN 0.6 % (0.5-1.5); BG DEOXYHEMOGLOBIN 2.5 % (0.0-5.0); BG FRACTION INSPIRED OXYGEN 100; BG HCO3 ACT 41.9 mmol/L (21.0-28.0); BG METHEMOGLOBIN 0.1 % (0.5-1.5); BG OXYGEN SATURATION 97.5 % (94.0-98.0); BG OXYHEMOGLOBIN 96.8 % (94.0-98.0); BG PCO2 97.6 mmHg (35.0-48.0); BG PEEP (cmH2O) 8.0 cmH2O; BG PH 7.251 (7.350-7.450); BG PIP 40.0 cmH2O; BG PO2 102.6 mmHg (83.0-108.0); BG SAMPLE SITE LEFT RADIAL; BG TOTAL HEMOGLOBIN 9.0 g/dL (13.5-17.5); BG TOTAL RESPIRATORY RATE 26 b/min; BG VENT MODE VENT - P/C; BG VENT RATE 26.0 set
[2025-07-17] MEDS: CALCIUM CHLORIDE 1GM/10ML SYR IV NR (09:37)
[2025-07-17] MEDS: DEXTROSE 50% WATER 50ML SYRINGE IV NR (09:37)
[2025-07-17] MEDS: CEFEPIME 2GM/100ML 100 ML IV SCH (09:39)
[2025-07-17] MEDS: INSULIN REGULAR (HUMULIN R) 1000UNITS/10ML VIAL IV NR (09:41)
[2025-07-17 10:44] LABS: LYMPHOCYTES % MANUAL 5.0 % (20.0-50.0); MONOCYTES % MANUAL 4.0 % (2.0-8.0); NEUTROPHILS % MANUAL 91.0 % (45.0-75.0); PLATELET ESTIMATE NORMAL
[2025-07-17] MEDS: HYDROCORTISONE SOD SUCCINATE 100 MG/2 ML VIAL IV SCH (17:18)
[2025-07-17 19:33] LABS: CREATININE 0.5 mg/dL (0.6-1.3); UREA NITROGEN BLOOD 14 mg/dL (9-23)
[2025-07-17] MEDS: TOBRAMYCIN SULFATE 40MG/ML 2ML INH SCH (22:14)
[2025-07-18] VITALS (110 sets, daily range): BP systolic 86–169; BP diastolic 53–104; PULSE 95–134; RESP 15–43; TEMP 36.1–36.9; O2SAT 90–100
[2025-07-18 05:20] LABS: PLATELET 398 x1000/uL (130-400); RED BLOOD CELL COUNT 3.51 mill/uL (4.7-6.1); RED CELL DISTRIBUTION WIDTH 16.4 % (11.6-14.6)
[2025-07-18 05:41] LABS: CREATININE 0.5 mg/dL (0.6-1.3); UREA NITROGEN BLOOD 17 mg/dL (9-23)
[2025-07-18 05:43] LABS: PHOSPHORUS 2.2 mg/dL (2.5-4.9)
[2025-07-18 09:13] LABS: BG BASE EXCESS 15.7 mmol/L (-2.0-3.0); BG CARBOXYHEMOGLOBIN 0.8 % (0.5-1.5); BG DEOXYHEMOGLOBIN 3.5 % (0.0-5.0); BG FRACTION INSPIRED OXYGEN 90; BG HCO3 ACT 43.2 mmol/L (21.0-28.0); BG METHEMOGLOBIN 0.3 % (0.5-1.5); BG OXYGEN SATURATION 96.5 % (94.0-98.0); BG OXYHEMOGLOBIN 95.4 % (94.0-98.0); BG PCO2 76.3 mmHg (35.0-48.0); BG PEEP (cmH2O) 5.0 cmH2O; BG PH 7.371 (7.350-7.450); BG PIP 40.0 cmH2O; BG PO2 83.8 mmHg (83.0-108.0); BG SAMPLE SITE LEFT RADIAL; BG TOTAL HEMOGLOBIN 8.7 g/dL (13.5-17.5); BG VENT MODE VENT - P/C; BG VENT RATE 26.0 set
[2025-07-18] MEDS: SODIUM ZIRCONIUM CYCLOSILICATE 10GM/PACKET PO NR (12:28)
[2025-07-18] MEDS: FUROSEMIDE 40MG/4ML VIAL IV NR (12:28)
[2025-07-18] MEDS: DEXTROSE 50% WATER 50ML SYRINGE IV NR (12:28)
[2025-07-18] MEDS: INSULIN REGULAR (HUMULIN R) 1000UNITS/10ML VIAL IV NR (12:29)
[2025-07-18] MEDS ORDERED: LACTULOSE ENEMA 1,000ML BOTTLE PR PRN (17:00)
[2025-07-18] MEDS ORDERED: PHENYLEPHRINE 50MG/250ML PMX 250 ML IV PRN (17:00)
[2025-07-18] MEDS: SODIUM PHOSPHATE 15 MMOL in DEXT 5% WATER 245 ML IV NR (17:53)
[2025-07-18 18:24] LABS: BG BASE EXCESS 16.8 mmol/L (-2.0-3.0); BG CARBOXYHEMOGLOBIN 0.5 % (0.5-1.5); BG DEOXYHEMOGLOBIN 8.0 % (0.0-5.0); BG FRACTION INSPIRED OXYGEN 90; BG HCO3 ACT 44.4 mmol/L (21.0-28.0); BG METHEMOGLOBIN 0.1 % (0.5-1.5); BG OXYGEN SATURATION 92.0 % (94.0-98.0); BG OXYHEMOGLOBIN 91.4 % (94.0-98.0); BG PCO2 73.0 mmHg (35.0-48.0); BG PEEP (cmH2O) 5.0 cmH2O; BG PH 7.402 (7.350-7.450); BG PIP 35.0 cmH2O; BG PO2 63.4 mmHg (83.0-108.0); BG SAMPLE SITE LEFT RADIAL; BG TOTAL HEMOGLOBIN 10.3 g/dL (13.5-17.5); BG VENT MODE VENT - P/C; BG VENT RATE 26.0 set
[2025-07-18] MEDS: LACTULOSE 20G/30ML UDC NG PRN (20:33)
[2025-07-19] VITALS (104 sets, daily range): BP systolic 85–166; BP diastolic 52–78; PULSE 76–116; RESP 18–34; TEMP 36.4–36.9; O2SAT 84–98
[2025-07-19 05:48] LABS: HEMATOCRIT. 22.2 % (42.0-52.0); HEMOGLOBIN. 7.2 g/dL (14.0-18.0); MEAN PLATELET VOLUME 7.2 fl (7.4-10.4); PLATELET 367 x1000/uL (130-400); RED BLOOD CELL COUNT 2.80 mill/uL (4.7-6.1); RED CELL DISTRIBUTION WIDTH 17.2 % (11.6-14.6)
[2025-07-19 05:54] LABS: CREATININE 0.6 mg/dL (0.6-1.3); UREA NITROGEN BLOOD 28 mg/dL (9-23)
[2025-07-19 05:56] LABS: PHOSPHORUS 3.3 mg/dL (2.5-4.9)
[2025-07-19 09:19] LABS: BG BASE EXCESS 17.8 mmol/L (-2.0-3.0); BG CARBOXYHEMOGLOBIN 1.4 % (0.5-1.5); BG DEOXYHEMOGLOBIN 1.4 % (0.0-5.0); BG FRACTION INSPIRED OXYGEN 100; BG HCO3 ACT 46.6 mmol/L (21.0-28.0); BG METHEMOGLOBIN 0.0 % (0.5-1.5); BG OXYGEN SATURATION 98.6 % (94.0-98.0); BG OXYHEMOGLOBIN 97.2 % (94.0-98.0); BG PCO2 94.4 mmHg (35.0-48.0); BG PEEP (cmH2O) 5.0 cmH2O; BG PH 7.311 (7.350-7.450); BG PIP 35.0 cmH2O; BG PO2 120.9 mmHg (83.0-108.0); BG SAMPLE SITE LEFT RADIAL; BG TOTAL HEMOGLOBIN 8.0 g/dL (13.5-17.5); BG VENT MODE VENT - P/C; BG VENT RATE 26.0 set
[2025-07-19 10:33] LABS: BAND% 3.0 % (1.0-6.0); LYMPHOCYTES % MANUAL 5.0 % (20.0-50.0); MONOCYTES % MANUAL 2.0 % (2.0-8.0); NEUTROPHILS % MANUAL 90.0 % (45.0-75.0); PLATELET ESTIMATE NORMAL
[2025-07-19 12:02] LABS: BG BASE EXCESS 17.0 mmol/L (-2.0-3.0); BG CARBOXYHEMOGLOBIN 0.4 % (0.5-1.5); BG DEOXYHEMOGLOBIN 3.0 % (0.0-5.0); BG FRACTION INSPIRED OXYGEN 90; BG HCO3 ACT 44.7 mmol/L (21.0-28.0); BG METHEMOGLOBIN 0.3 % (0.5-1.5); BG OXYGEN SATURATION 97.0 % (94.0-98.0); BG OXYHEMOGLOBIN 96.3 % (94.0-98.0); BG PCO2 82.1 mmHg (35.0-48.0); BG PEEP (cmH2O) 8.0 cmH2O; BG PH 7.354 (7.350-7.450); BG PO2 95.3 mmHg (83.0-108.0); BG SAMPLE SITE LEFT RADIAL; BG TOTAL HEMOGLOBIN 7.6 g/dL (13.5-17.5); BG VENT MODE VENT - AC/PC; BG VENT RATE 26.0 set
[2025-07-19] MEDS ORDERED: ACETAMINOPHEN 650MG/20.3ML UDC GT PRN ×2 (15:30)
[2025-07-19] MEDS ORDERED: DOCUSATE SODIUM SUGAR FREE 100MG/10ML UDC GT PRN (15:45)
[2025-07-19] MEDS: FENTANYL 2500MCG/250ML PMX 250 ML IV PRN (18:50)
[2025-07-20] VITALS (95 sets, daily range): BP systolic 99–156; BP diastolic 51–82; PULSE 79–122; RESP 23–32; TEMP 36.3–37.2; O2SAT 91–98
[2025-07-20 05:28] LABS: HEMATOCRIT. 22.5 % (42.0-52.0); HEMOGLOBIN. 7.3 g/dL (14.0-18.0); MEAN PLATELET VOLUME 7.0 fl (7.4-10.4); PLATELET 336 x1000/uL (130-400); RED BLOOD CELL COUNT 2.82 mill/uL (4.7-6.1); RED CELL DISTRIBUTION WIDTH 17.0 % (11.6-14.6)
[2025-07-20 05:45] LABS: CREATININE 0.5 mg/dL (0.6-1.3); UREA NITROGEN BLOOD 29 mg/dL (9-23)
[2025-07-20 05:47] LABS: PHOSPHORUS 2.8 mg/dL (2.5-4.9)
[2025-07-20 08:40] LABS: BG BASE EXCESS 19.6 mmol/L (-2.0-3.0); BG CARBOXYHEMOGLOBIN 1.4 % (0.5-1.5); BG DEOXYHEMOGLOBIN 3.0 % (0.0-5.0); BG FRACTION INSPIRED OXYGEN 100; BG HCO3 ACT 50.1 mmol/L (21.0-28.0); BG METHEMOGLOBIN 0.4 % (0.5-1.5); BG OXYGEN SATURATION 96.9 % (94.0-98.0); BG OXYHEMOGLOBIN 95.2 % (94.0-98.0); BG PCO2 119.5 mmHg (35.0-48.0); BG PEEP (cmH2O) 8.0 cmH2O; BG PH 7.240 (7.350-7.450); BG PO2 100.8 mmHg (83.0-108.0); BG SAMPLE SITE LEFT RADIAL; BG TOTAL HEMOGLOBIN 8.2 g/dL (13.5-17.5); BG VENT MODE VENT - AC/PC; BG VENT RATE 26.0 set
[2025-07-20] MEDS: INSULIN REGULAR (HUMULIN R) 1000UNITS/10ML VIAL IV NR (20:42)
[2025-07-20] MEDS: DEXTROSE 50% WATER 50ML SYRINGE IV NR (20:42)
[2025-07-20] MEDS: CALCIUM GLUCONATE 100MG/ML 10ML VIAL IV NR (20:54)
[2025-07-20 21:57] LABS: LYMPHOCYTES % MANUAL 6.0 % (20.0-50.0); MONOCYTES % MANUAL 4.0 % (2.0-8.0); NEUTROPHILS % MANUAL 90.0 % (45.0-75.0); PLATELET ESTIMATE NORMAL
[2025-07-20] MEDS: DEXMEDETOMIDINE 100 ML IV PRN (22:07)
[2025-07-21] VITALS (81 sets, daily range): BP systolic 67–133; BP diastolic 44–95; PULSE 0–116; RESP 0–40; TEMP 36.6–36.8; O2SAT 30–100
[2025-07-21 05:51] LABS: BASOPHILS % 0.1 % (0.0-2.0); EOSINOPHILS % 0.1 % (0.0-5.0); HEMATOCRIT. 26.8 % (42.0-52.0); HEMOGLOBIN. 8.2 g/dL (14.0-18.0); LYMPHOCYTES % 9.1 % (20.0-50.0); MEAN PLATELET VOLUME 7.2 fl (7.4-10.4); MONOCYTES % 2.5 % (2.0-8.0); NEUTROPHILS % 88.2 % (40.0-76.0); PLATELET 382 x1000/uL (130-400); RED BLOOD CELL COUNT 3.27 mill/uL (4.7-6.1); RED CELL DISTRIBUTION WIDTH 17.1 % (11.6-14.6)
[2025-07-21 06:14] LABS: CREATININE 0.7 mg/dL (0.6-1.3)
[2025-07-21 06:15] LABS: UREA NITROGEN BLOOD 32 mg/dL (9-23)
[2025-07-21 06:16] LABS: PHOSPHORUS 3.8 mg/dL (2.5-4.9)
[2025-07-21] MEDS: CALCIUM GLUCONATE 100MG/ML 10ML VIAL IV SCH (08:22)
[2025-07-21] MEDS: DEXTROSE 50% WATER 50ML SYRINGE IV SCH (08:22)
[2025-07-21] MEDS: INSULIN REGULAR (HUMULIN R) 1000UNITS/10ML VIAL IV SCH (08:25)
[2025-07-21] MEDS: DEXTROSE 50% WATER 50ML SYRINGE IV NR (08:45)
[2025-07-21] MEDS: INSULIN REGULAR (HUMULIN R) 1000UNITS/10ML VIAL IV NR (08:46)
[2025-07-21 09:30] LABS: BG BASE EXCESS 13.5 mmol/L (-2.0-3.0); BG CARBOXYHEMOGLOBIN 1.5 % (0.5-1.5); BG DEOXYHEMOGLOBIN 4.9 % (0.0-5.0); BG FRACTION INSPIRED OXYGEN 100; BG HCO3 ACT 48.0 mmol/L (21.0-28.0); BG METHEMOGLOBIN 0.3 % (0.5-1.5); BG OXYGEN SATURATION 95.0 % (94.0-98.0); BG OXYHEMOGLOBIN 93.3 % (94.0-98.0); BG PCO2 179.9 mmHg (35.0-48.0); BG PEEP (cmH2O) 8.0 cmH2O; BG PH 7.044 (7.350-7.450); BG PO2 88.6 mmHg (83.0-108.0); BG SAMPLE SITE LEFT RADIAL; BG TOTAL HEMOGLOBIN 9.5 g/dL (13.5-17.5); BG VENT MODE VENT - P/C; BG VENT RATE 30.0 set
[2025-07-21] MEDS: ACETAZOLAMIDE 250MG TABLET PO SCH (17:26)
[2025-07-21] MEDS ORDERED: NOREPINEPHRINE 32 MG in DEXT 5% WATER 218 ML IV PRN (20:15)
[2025-07-21] MEDS: DEXTROSE 50% WATER 50ML SYRINGE IV PRN (20:34)
== END 2025-07-21 21:23 | DRG 870 ==
LOC: ER 20:44 → MICUSO 22:27 → EDBEDREQTM 23:07 → EDBEDREQ 23:07 → ENRESERV 23:21 → CANRESERV 23:21 → EDBEDREQDT 07-02 00:25 → EDBEDREQSVC 07-02 00:25 → EDBEDREQTM 07-02 00:25 → EDBEDREQSVC 07-02 01:30 → ENRESERV 07-02 04:46 → CANRESERV 07-02 04:46 → EDBEDREQSVC 07-02 05:30 → EDBEDREQTM 07-02 05:30 → ENRESERV 07-02 06:10
PROVIDERS: ADMIT Internal Medicine; ATTEND Internal Medicine
PROC: 5A09357 Assistance with Respiratory Ventilation, Less than 24 Consecutive Hours, Continuous Positive Airway Pressure (ICD-10-PCS; 2025-07-01)
PROC: 0BH17EZ Insertion of Endotracheal Airway into Trachea, Via Natural or Artificial Opening (ICD-10-PCS; principal; 2025-07-02)
PROC: 5A1955Z Respiratory Ventilation, Greater than 96 Consecutive Hours (ICD-10-PCS; 2025-07-02)
PROC: 06HY33Z Insertion of Infusion Device into Lower Vein, Percutaneous Approach (ICD-10-PCS; 2025-07-03)
PROC: B54CZZA Ultrasonography of Left Lower Extremity Veins, Guidance (ICD-10-PCS; 2025-07-03)
PROC: 06HY33Z Insertion of Infusion Device into Lower Vein, Percutaneous Approach (ICD-10-PCS; 2025-07-16)
PROC: B54BZZA Ultrasonography of Right Lower Extremity Veins, Guidance (ICD-10-PCS; 2025-07-16)
PROC: 5A12012 Performance of Cardiac Output, Single, Manual (ICD-10-PCS; 2025-07-21)
DX: A41.52 Sepsis due to Pseudomonas (principal); J69.0 Pneumonitis due to inhalation of food and vomit; R65.21 Severe sepsis with septic shock; J80 Acute respiratory distress syndrome; J15.1 Pneumonia due to Pseudomonas; G93.40 Encephalopathy, unspecified; E87.29 Other acidosis; E87.3 Alkalosis; D64.9 Anemia, unspecified; E11.9 Type 2 diabetes mellitus without complications; I46.9 Cardiac arrest, cause unspecified; J45.901 Unspecified asthma with (acute) exacerbation; I69.351 Hemiplegia and hemiparesis following cerebral infarction affecting right dominant side; I10 Essential (primary) hypertension; G40.909 Epilepsy, unspecified, not intractable, without status epilepticus; Y95 Nosocomial condition; E78.5 Hyperlipidemia, unspecified; N40.0 Benign prostatic hyperplasia without lower urinary tract symptoms; H91.3 Deaf nonspeaking, not elsewhere classified; H54.8 Legal blindness, as defined in USA; E87.5 Hyperkalemia; F99 Mental disorder, not otherwise specified; Z79.899 Other long term (current) drug therapy; E87.70 Fluid overload, unspecified
CPT/HCPCS: 31500; 31720; 36415; 36573; 36600; 71045; 71275; 74018; 76937; 80048; 80076; 80202; 81003; 82375; 82803; 82805; 82962; 83036; 83605; 83735; 83880; 84100; 84132; 84145; 84478; 84484; 85014; 85018; 85025; 85027; 85379; 87070; 87077; 87186; 87420; 87804; 92950; 93005; 93970; 94002; 94003; 94070; 94640; 94660; 94664; 94667; 97161; 98960; 99285; A4606; C1725; C1769; C1887; J0360; J0456; J0612; J0692; J0696; J1650; J1720; J1815; J1938; J1953; J2003; J2060; J2185; J2250; J2470; J2543; J2704; J2765; J2919; J3010; J3260; J3373; J3475; J3490; J7030; J7042; J7050; J7060; J7608; Q9967